=== PATIENT | male | born 1980 | race Hispanic/Latino ===

== ENCOUNTER 2017-08-20 23:06 | Emergency (ER) | payer BC ==
[2017-08-20] MEDS ORDERED: KETOROLAC TROMETHAMINE 30MG/ML ONE (23:22)
[2017-08-20 23:42] LABS: BASOPHILS % (AUTO) 4.1 % (0.0-5.0); EOSINOPHILS % (AUTO) 2.4 % (0.0-8.0); HEMATOCRIT 47.2 % (42-54); LYMPHOCYTES % (AUTO) 11.6 % (21.0-51.0); MEAN CORPUSCULAR HEMOGLOBIN 31.4 pg (27.0-33.0); MEAN CORPUSCULAR HGB CONC 34.3 g/dL (32.0-36.0); MEAN CORPUSCULAR VOLUME 91.6 fL (79-99); MONOCYTES % (AUTO) 6.8 % (3.0-13.0); NEUTROPHILS % (AUTO) 75.1 % (40.0-77.0); NUCLEATED RED BLOOD CELLS 0.1 % (0.0-0.19); PLATELET COUNT (AUTO) 277 K/uL (130-400); RED BLOOD CELL COUNT(AUTO) 5.15 MIL/uL (4.50-6.20); RED CELL DISTRIBUTION WIDTH 14.3 % (11.0-15.5); WHITE BLOOD COUNT (AUTO) 9.5 K/uL (4.8-10.8)
[2017-08-20 23:56] LABS: CREATININE 0.9 mg/dL (0.5-1.5); POTASSIUM 3.5 mmol/L (3.5-5.1)
[2017-08-21] MEDS ORDERED: TAMSULOSIN HCL 0.4 MG CAP.ER.24H ONE (00:17)
== END 2017-08-21 00:46 | disposition home or self-care (01) ==
LOC: EDH 23:06
DX: N20.1 Calculus of ureter (principal); Z98.890 Other specified postprocedural states
CPT/HCPCS: 36415; 74176; 80048; 85025; 96374; 99285; J1885

== ENCOUNTER 2017-08-25 12:16 | Emergency (ER) | payer BC ==
[2017-08-25] MEDS ORDERED: SODIUM CHLORIDE 0.9% 1000ML 1,000 ML IV ONE (12:42)
[2017-08-25] MEDS ORDERED: KETOROLAC TROMETHAMINE 30MG/ML ONE (12:42)
[2017-08-25] MEDS ORDERED: ONDANSETRON HCL MDV 20ML 2 MG/ML VIAL ONE (12:42)
[2017-08-25 12:53] LABS: BASOPHILS % (AUTO) 0.2 % (0.0-5.0); EOSINOPHILS % (AUTO) 0.3 % (0.0-8.0); HEMATOCRIT 44.9 % (42-54); LYMPHOCYTES % (AUTO) 6.1 % (21.0-51.0); MEAN CORPUSCULAR HEMOGLOBIN 31.2 pg (27.0-33.0); MEAN CORPUSCULAR VOLUME 91.8 fL (79-99); NEUTROPHILS % (AUTO) 85.4 % (40.0-77.0); PLATELET COUNT (AUTO) 252 K/uL (130-400); RED BLOOD CELL COUNT(AUTO) 4.89 MIL/uL (4.50-6.20)
[2017-08-25 13:09] LABS: POTASSIUM 3.4 mmol/L (3.5-5.1)
[2017-08-25 13:15] LABS: ALBUMIN 3.7 g/dL (3.5-5.0); BILIRUBIN,TOTAL 0.6 mg/dL (0.2-1.0); TOTAL PROTEIN, SERUM 7.3 g/dL (6.0-8.3)
[2017-08-25 14:15] LABS: APPEARANCE,URINE CLEAR (CLEAR); BILIRUBIN,URINE SMALL (NEGATIVE); COLOR,URINE YELLOW (YELLOW); GLUCOSE, URINE (UA) NEGATIVE (NEGATIVE); KETONES,URINE 15 mg/dL (NEGATIVE); LEUKOCYTE ESTERASE ,URINE NEGATIVE (NEGATIVE); NITRATE,URINE NEGATIVE (NEGATIVE); OCCULT BLOOD,URINE LARGE (NEGATIVE); PH,URINE 5.5 (5.0-8.0); PROTEIN,URINE TRACE (NEGATIVE)
[2017-08-25] MEDS ORDERED: MORPHINE SULFATE 4 MG/1ML SYG ONE (14:35)
[2017-08-25 14:47] LABS: BACTERIA,URINE None Seen /HPF (None Seen); MUCUS,URINE Many LPF (None Seen); RBC,URINE 26-50 /HPF (0-1); SQUAMOUS EPITHELIAL CELL,UR 0-2 /HPF (0-2); WBC,URINE None Seen /HPF (0-1)
== END 2017-08-25 15:06 | disposition home or self-care (01) ==
LOC: EDH 12:16
DX: N20.0 Calculus of kidney (principal)
CPT/HCPCS: 36415; 80053; 81001; 83690; 85025; 96374; 96375; 99284; J1885; J2270; J7030

== ENCOUNTER 2019-10-24 16:11 | Emergency (ER) | payer BC, OTHER ==
[2019-10-24 18:27] LABS: APPEARANCE,URINE Clear (CLEAR); BILIRUBIN,URINE Negative (NEGATIVE); COLOR,URINE Dark Yellow (YELLOW); GLUCOSE, URINE (UA) Negative (NEGATIVE); KETONES,URINE Trace mg/dL (NEGATIVE); LEUKOCYTE ESTERASE ,URINE Negative (NEGATIVE); NITRATE,URINE Negative (NEGATIVE); OCCULT BLOOD,URINE Negative (NEGATIVE); PROTEIN,URINE POS 1+ mg/dL (NEGATIVE)
[2019-10-24 18:54] LABS: BACTERIA,URINE Few /HPF (None Seen); MUCUS,URINE Many LPF (None Seen); SQUAMOUS EPITHELIAL CELL,UR Few /HPF (0-2)
== END 2019-10-24 19:01 | disposition home or self-care (01) ==
LOC: EDH 16:11
DX: R50.9 Fever, unspecified (principal); R11.0 Nausea; M79.10 Myalgia, unspecified site; Z20.828 Contact with and (suspected) exposure to other viral communicable diseases
CPT/HCPCS: 36415; 71045; 81001; 99284; U0003

== ENCOUNTER 2020-11-04 19:53 | Emergency (ER) | payer OTHER ==
[~2020-11-04] VITALS: Ht 175.3 cm; Wt 111.1 kg
[2020-11-04] MEDS ORDERED: MAG/ALUM/SIMETH 30 ML UDCUP PO ONE (21:00)
[2020-11-04] MEDS ORDERED: LIDOCAINE HCL 2% VISCOUS 15 ML UDCUP PO ONE (21:00)
[2020-11-04] MEDS ORDERED: LIDOCAINE HCL 2% VISCOUS 15 ML UDCUP ONE (21:12)
[2020-11-04] MEDS ORDERED: MAG/ALUM/SIMETH 30 ML UDCUP ONE (21:12)
[2020-11-04] MEDS ORDERED: FAMOTIDINE 20MG TAB ONE (21:13)
[2020-11-04 22:04] LABS: BASOPHILS % (AUTO) 0.6 % (0.0-5.0); EOSINOPHILS % (AUTO) 1.9 % (0.0-8.0); HEMATOCRIT 43.7 % (42-54); LYMPHOCYTES % (AUTO) 19.5 % (21.0-51.0); MEAN CORPUSCULAR HEMOGLOBIN 24.4 pg (27.0-33.0); MEAN CORPUSCULAR HGB CONC 30.2 g/dL (32.0-36.0); MEAN CORPUSCULAR VOLUME 80.9 fL (79-99); MONOCYTES % (AUTO) 8.7 % (3.0-13.0); PLATELET COUNT (AUTO) 301 K/uL (130-400); RED CELL DISTRIBUTION WIDTH 15.9 % (11.0-15.5); WHITE BLOOD COUNT (AUTO) 10.8 K/uL (4.8-10.8)
[2020-11-04 22:17] LABS: CREATININE 1.1 mg/dL (0.5-1.5); POTASSIUM 3.7 mmol/L (3.5-5.1)
[2020-11-04 22:21] LABS: ALBUMIN 4.2 g/dL (3.5-5.0); BILIRUBIN,TOTAL 0.4 mg/dL (0.2-1.0); TOTAL PROTEIN, SERUM 7.6 g/dL (6.0-8.3)
[2020-11-04] MEDS ORDERED: FAMO-136 PO (22:44)
[2020-11-04 23:10] VITALS: BP 126/78
== END 2020-11-04 23:07 | disposition home or self-care (01) ==
LOC: EDH 19:53
DX: K21.9 Gastro-esophageal reflux disease without esophagitis (principal); R07.89 Other chest pain; Z98.84 Bariatric surgery status; Z79.899 Other long term (current) drug therapy
CPT/HCPCS: 36415; 71045; 80053; 83690; 84484; 85025; 93005

== ENCOUNTER 2022-10-04 15:05 | Emergency (ER) | payer OTHER ==
[~2022-10-04] VITALS: Ht 177.8 cm; Wt 108.9 kg
[~2022-10-04 15:05] MED LIST: FAMO-136 PO
[2022-10-04 16:20] LABS: BASOPHILS % (AUTO) 0.5 % (0.0-5.0); HEMATOCRIT 44.9 % (42-54); LYMPHOCYTES % (AUTO) 16.2 % (21.0-51.0); MEAN CORPUSCULAR HEMOGLOBIN 24.5 pg (27.0-33.0); MEAN CORPUSCULAR HGB CONC 30.5 g/dL (32.0-36.0); MEAN CORPUSCULAR VOLUME 80.2 fL (79-99); MONOCYTES % (AUTO) 10.7 % (3.0-13.0); NEUTROPHILS % (AUTO) 71.3 % (40.0-77.0); PLATELET COUNT (AUTO) 341 K/uL (130-400); RED CELL DISTRIBUTION WIDTH 15.9 % (11.0-15.5); WHITE BLOOD COUNT (AUTO) 9.3 K/uL (4.8-10.8)
[2022-10-04 17:03] LABS: APPEARANCE,URINE CLEAR (CLEAR); BILIRUBIN,URINE NEGATIVE (NEGATIVE); COLOR,URINE LIGHT-YELLOW (YELLOW); GLUCOSE, URINE (UA) TRACE mg/dL (NEGATIVE); KETONES,URINE NEGATIVE (NEGATIVE); LEUKOCYTE ESTERASE ,URINE NEGATIVE Leu/uL (NEGATIVE); NITRATE,URINE NEGATIVE (NEGATIVE); OCCULT BLOOD,URINE NEGATIVE (NEGATIVE); PROTEIN,URINE 10 mg/dL (NEGATIVE); UROBILINOGEN,URINE 0.2 mg/dL (0.2-1.0)
[2022-10-04 17:05] LABS: CREATININE 0.9 mg/dL (0.5-1.5); POTASSIUM 4.1 mmol/L (3.5-5.1)
[2022-10-04 17:05] LABS: BACTERIA,URINE RARE /HPF (None Seen); MUCUS,URINE MOD LPF (None Seen); RBC,URINE 0-1 /HPF (0-1); SQUAMOUS EPITHELIAL CELL,UR RARE /HPF (0-2); WBC,URINE 0-1 /HPF (0-1)
[2022-10-04 17:10] LABS: TOTAL PROTEIN, SERUM 7.7 g/dL (6.0-8.3)
[2022-10-04] MEDS ORDERED: METH-811 PO (18:27)
[2022-10-04] MEDS ORDERED: PRED20TA3 PO (18:27)
[2022-10-04] MEDS ORDERED: KETOROLAC 60 MG VIAL (30MG/ML) IM ONE ×2 (18:30→18:43)
[2022-10-04] MEDS ORDERED: CYCLOBENZAPRINE HCL 10 MG TABLET PO ONE (18:30)
[2022-10-04] MEDS ORDERED: PREDNISONE 20 MG TABLET PO ONE (18:30)
[2022-10-04] MEDS ORDERED: CYCLOBENZAPRINE HCL 10 MG TABLET ONE (18:43)
[2022-10-04] MEDS ORDERED: PREDNISONE 20 MG TABLET ONE (18:43)
[2022-10-04 18:48] VITALS: BP 126/78
== END 2022-10-04 18:48 | disposition home or self-care (01) ==
LOC: EDH 15:05
DX: S39.012A Strain of muscle, fascia and tendon of lower back, initial encounter (principal); X58.XXXA Exposure to other specified factors, initial encounter; Y93.89 Activity, other specified; Y92.89 Other specified places as the place of occurrence of the external cause; Y99.8 Other external cause status
CPT/HCPCS: 99285; 74176; 80053; 85025; 81001; 36415; 96372; J1885

== ENCOUNTER 2023-11-14 07:41 | Emergency (ER) | payer BC, OTHER ==
[~2023-11-14] VITALS: Ht 180.3 cm; Wt 106.6 kg
[~2023-11-14 07:41] MED LIST changes: +METH-811 PO; +PRED20TA3 PO
[2023-11-14 08:27] LABS: APPEARANCE,URINE CLEAR (CLEAR); BILIRUBIN,URINE NEGATIVE (NEGATIVE); COLOR,URINE YELLOW (YELLOW); GLUCOSE, URINE (UA) NEGATIVE (NEGATIVE); KETONES,URINE NEGATIVE (NEGATIVE); LEUKOCYTE ESTERASE ,URINE NEGATIVE Leu/uL (NEGATIVE); NITRATE,URINE NEGATIVE (NEGATIVE); OCCULT BLOOD,URINE NEGATIVE (NEGATIVE); PROTEIN,URINE 10 mg/dL (NEGATIVE); UROBILINOGEN,URINE 0.2 mg/dL (0.2-1.0)
[2023-11-14 08:33] LABS: ADD UA MICROSCOPIC YES
[2023-11-14 08:35] LABS: MUCUS,URINE MOD LPF (None Seen); RBC,URINE 0-1 /HPF (0-1)
[2023-11-14 09:26] LABS: HEMATOCRIT 41.9 % (42-54); MEAN CORPUSCULAR HEMOGLOBIN 23.2 pg (27.0-33.0); MEAN CORPUSCULAR HGB CONC 30.1 g/dL (32.0-36.0); PLATELET COUNT (AUTO) 317 K/uL (130-400); RED BLOOD CELL COUNT(AUTO) 5.44 MIL/uL (4.50-6.20); WHITE BLOOD COUNT (AUTO) 8.5 K/uL (4.8-10.8)
[2023-11-14 09:36] LABS: CREATININE 0.9 mg/dL (0.5-1.3)
[2023-11-14] MEDS ORDERED: IOHEXOL 350 MG/ML 100ML INFUS..BTL IV ONE (10:09)
[2023-11-14] MEDS ORDERED: IBUPROFEN 800 MG TAB PO ONE (10:30)
[2023-11-14] MEDS ORDERED: AMOX1TAB16 PO (10:37)
[2023-11-14] MEDS ORDERED: IBUP-2077 PO (10:37)
[2023-11-14 10:44] VITALS: BP 131/77; PULSE 85; RESP 20; O2SAT 98
[2023-11-14] MEDS ORDERED: AMOX/CLAV 875/125MG TAB PO ONE (11:00)
[2023-11-14 11:25] LABS: BAND NEUTROPHILS % (MANUAL) 3 % (0-2); BASOPHILS % (MANUAL) 1 % (0-2); LYMPHOCYTES % (MANUAL) 19 % (22-44); MAN.DIFF COMMENT-IMPRESSION MANUAL DIFFERENTIAL; MONOCYTES % (MANUAL) 9 % (2-9); PLATELET MORPHOLOGY COMMENT ADEQUATE; SEGMENTED NEUTROPHILS % 68 % (40-70); TOTAL CELLS COUNTED 100
== END 2023-11-14 10:59 | disposition home or self-care (01) ==
LOC: EDH 07:41
DX: K57.32 Diverticulitis of large intestine without perforation or abscess without bleeding (principal); Z79.899 Other long term (current) drug therapy; Z98.84 Bariatric surgery status; Z98.890 Other specified postprocedural states
CPT/HCPCS: 99284; 74177; 80048; 85025; 81001; 36415; Q9967

== ENCOUNTER 2024-03-08 15:05 | Emergency (ER) | payer BC ==
[~2024-03-08] VITALS: Ht 177.8 cm; Wt 106.6 kg
[~2024-03-08 15:05] MED LIST changes: +AMOX1TAB16 PO; +IBUP-2077 PO
[2024-03-08 15:06] VITALS: TEMP 98.8
[2024-03-08 15:28] LABS: BASOPHILS # (AUTO) 0.07 K/uL (0.00-0.20); BASOPHILS % (AUTO) 0.9 % (0.0-5.0); EOSINOPHILS # (AUTO) 0.14 K/uL (0.00-0.70); EOSINOPHILS % (AUTO) 1.8 % (0.0-8.0); HEMATOCRIT 45.1 % (42-54); IMMATURE GRANULOCYTE ABSOLUTE 0.02 K/uL (0-1); LYMPHOCYTES % (AUTO) 25.5 % (21.0-51.0); MEAN CORPUSCULAR HEMOGLOBIN 23.8 pg (27.0-33.0); MEAN CORPUSCULAR HGB CONC 30.2 g/dL (32.0-36.0); MONOCYTES # (AUTO) 0.9 K/uL (0.1-1.0); MONOCYTES % (AUTO) 11.1 % (3.0-13.0); NEUTROPHILS # (AUTO) 4.6 K/uL (1.8-7.7); NEUTROPHILS % (AUTO) 60.4 % (40.0-77.0); PLATELET COUNT (AUTO) 361 K/uL (130-400); RED BLOOD CELL COUNT(AUTO) 5.71 MIL/uL (4.50-6.20); RED CELL DISTRIBUTION WIDTH 16.2 % (11.0-15.5); WHITE BLOOD COUNT (AUTO) 7.7 K/uL (4.8-10.8)
[2024-03-08 15:32] LABS: APPEARANCE,URINE CLEAR (CLEAR); BILIRUBIN,URINE NEGATIVE (NEGATIVE); COLOR,URINE LIGHT-YELLOW (YELLOW); GLUCOSE, URINE (UA) NEGATIVE (NEGATIVE); KETONES,URINE NEGATIVE (NEGATIVE); LEUKOCYTE ESTERASE ,URINE NEGATIVE Leu/uL (NEGATIVE); NITRATE,URINE NEGATIVE (NEGATIVE); OCCULT BLOOD,URINE NEGATIVE (NEGATIVE); PH,URINE 5.5 (5.0-8.0); PROTEIN,URINE NEGATIVE (NEGATIVE); UROBILINOGEN,URINE 0.2 mg/dL (0.2-1.0)
[2024-03-08 15:33] LABS: ADD UA MICROSCOPIC NO
[2024-03-08 15:53] LABS: POTASSIUM 3.7 mmol/L (3.5-5.1)
[2024-03-08] MEDS ORDERED: IOHEXOL 350 MG/ML 100ML INFUS..BTL IV ONE (16:09)
--- NOTE | 2024-03-08 16:30 | HMCIMG ---
CT ABDOMEN/PELVIS W/CONTRAST REASON: LLQ abd pain r/o complicated diverticulitis hx of diverticulitis COMPARISON: None. TECHNIQUE: Images are obtained from lung bases to the symphysis pubis following IV contrast, 100 cc Omnipaque 350. FINDINGS: Lung bases are clear. There are no focal liver lesions. There are normal-appearing kidneys.. Spleen and pancreas appear unremarkable. The gallbladder appears normal as well. There are some mildly prominent fluid-filled loops of small bowel, nonspecific, often a reflection of gastroenteritis or ileus. There is mild sigmoid diverticulosis without evidence of diverticulitis. Colon otherwise appears unremarkable. This includes normal appearance of the appendix.. This includes normal appearance of the appendix There is no evidence of free fluid or intraperitoneal air. There are no focal fluid collections. Aorta and retroperitoneum appear normal as do pelvic soft tissue structures. The anterior abdominal wall is intact. Osseous structures appear unremarkable. IMPRESSION: 1. Mildly prominent fluid-filled loops of small bowel without transition zone, findings nonspecific but most consistent with gastroenteritis or mild ileus. 2. Mild sigmoid diverticulosis without evidence of diverticulitis. 3. Otherwise unremarkable post contrast CT abdomen and pelvis. CT was performed with one or more following dose reduction techniques: automated exposure control, adjustment of the mA and kv according to patient's size, or use of a iterative reconstruction technique.
[2024-03-08] MEDS ORDERED: ONDA-243 PO (17:39)
[2024-03-08] MEDS ORDERED: AMOX1TAB16 PO (17:39)
[2024-03-08] MEDS ORDERED: FAMO-136 PO (17:39)
--- NOTE | 2024-03-08 17:39 | ERN ---
General Chief Complaint: Abdominal Pain Stated Complaint: ABDOMINAL PAIN Time Seen by MD: 15:07 Time Seen by Midlevel: 15:07 Source: patient History of Present Illness Initial Comments Patient is a 43-year-old male with a past medical history of diverticulitis and a gastric bypass presenting to the emergency department of periumbilical abdominal pain that started this morning. He specifically denies any constipation, nausea, vomiting, diarrhea, fever, or any other symptoms at this time. Patient does have a history of complicated diverticulitis and was concerned that he may be having a flare-up. Allergies: Coded Allergies: No Known Allergies (Unverified Allergy, Unknown, 10/04/22) Home Meds Active Scripts Amoxicillin/Potassium Clav (Amox Tr-K Clv 875-125 mg Tab) 875 Mg-125 Mg Tablet, 1 EACH PO BID for 5 Days, #10 TAB 0 Refills Prov:ZITA JACK 03/08/24 Ondansetron (Ondansetron Odt) 4 Mg Tab.rapdis, 4 MG PO BID for 7 Days, #14 TAB Prov:ZITA JACK 03/08/24 Famotidine (Pepcid) 20 Mg Tablet, 1 TAB PO BID for 7 Days, #14 TAB 0 Refills Prov:ZITA JACK 03/08/24 Ibuprofen (Ibuprofen 800 mg Tab) 800 Mg Tab, 800 MG PO Q8H PRN for fever or pain, #30 TAB 0 Refills Prov:JULISSA RIVERA NP 11/14/23 Amoxicillin/Potassium Clav (Amox Tr-K Clv 875-125 mg Tab) 875 Mg-125 Mg Tablet, 1 EACH PO BID for 10 Days, #20 TAB 0 Refills Prov:JULISSA RIVERA NP 11/14/23 Prednisone (Prednisone) 20 Mg Tablet, 2 TAB PO DAILY for 5 Days, #10 TAB 0 Refills Prov:CHEKO RAHMAN [facility] 10/04/22 Methocarbamol (Methocarbamol) 500 Mg Tablet, 500 MG PO BID PRN for BACK PAIN, #30 TAB Prov:CHKEO RAHMAN [facility] 10/04/22 Famotidine (Pepcid) 20 Mg Tablet, 20 MG PO BID, #60 TAB Prov:SCAR DEAL 11/04/20 Past Medical History Past Medical History: No Pertinent History Past Surgical History: Bariatric Surgery Surgical History Other: GASTRIC BYPASS Social History Social History: Negative ROS Dictation CONSTITUTIONAL: Negative except for HPI HEAD/FACE: Negative except for HPI EENT: Negative except for HPI RESPIRATORY: Negative except for HPI GASTROINTESTINAL/ABDOMINAL: Negative except for HPI GENITOURINARY: Negative except for HPI MUSCULOSKELETAL: Negative except for HPI INTEGUMENTARY: Negative except for HPI NEUROLOGICAL/PSYCH: Negative except for HPI HEMATOLOGIC/LYMPHATIC: Negative except for HPI All Systems Negative, Except as noted above. 13 point review of systems assessed and all negative except for above. Physical Exam Physical Exam Dictation Vital Signs reviewed General Appearance: Alert, oriented x 3, no acute distress, well developed, nourished. Head and Face: non-traumatic. Eyes: PERRL, pink conjunctivas, eyelid no trauma, anterior chamber with arcus senilis. Ears: Pinnas intact and no signs of trauma or erythema ear canals clear and no discharge TM no erythema Nose: No discharge, no bleeding. Oropharynx: Mouth normal, tongue pink, pharynx clear,no erythema, tonsils no exudates, no abscesses noted, mucous membrane moist Neck: Supple, non-tender, no thyromegaly, no masses, no JVD, no bruits Breast:Deferred Chest:No tenderness, no crepitus, no paradoxical movement, no retractions Lungs:Clear, well-ventilated, symmetric, no rales, no wheezing, no rhonchi, no stridor, good breath sounds bilaterally Heart: Regular rate, regular rhythm, no murmur, no gallops Vascular: no peripheral edema, Abdomen: Soft, positive bowel sounds, nondistended, no guarding, Diffuse abdominal tenderness, no rebound, no masses no hepatomegaly, no splenomegaly, no Morel's sign, no hernias. Rectal: Deferred Genital: Deferred Neurological: Normal speech, motor function intact, sensory function intact Musculoskeletal: Neck nontender, full range of motion, back nontender, full range of motion, Extremities: nontender, full range of motion Skin: Color pink, dry, no turgor, no rash, no lacerations, no abrasions, no contusions. Lymphatic: Deferred Results Laboratory and Microbiology Lab and Micro Result Laboratory Tests Test 03/08/24 15:18 White Blood Count 7.7 K/uL (4.8-10.8) Red Blood Count 5.71 MIL/uL (4.50-6.20) Hemoglobin 13.6 g/dL (14.0-18.0) L Hematocrit 45.1 % (42-54) Mean Corpuscular Volume 79.0 fL (79-99) Mean Corpuscular Hemoglobin 23.8 pg (27.0-33.0) L Mean Corpuscular Hemoglobin Concent 30.2 g/dL (32.0-36.0) L Red Cell Distribution Width 16.2 % (11.0-15.5) H Platelet Count 361 K/uL (130-400) Mean Platelet Volume 10.5 fL (7.5-10.5) Immature Granulocyte % (Auto) 0.3 % (0-1) Neutrophils (%) (Auto) 60.4 % (40.0-77.0) Lymphocytes (%) (Auto) 25.5 % (21.0-51.0) Monocytes (%) (Auto) 11.1 % (3.0-13.0) Eosinophils (%) (Auto) 1.8 % (0.0-8.0) Basophils (%) (Auto) 0.9 % (0.0-5.0) Neutrophils # (Auto) 4.6 K/uL (1.8-7.7) Lymphocytes # (Auto) 2.0 K/uL (1.0-4.8) Monocytes # (Auto) 0.9 K/uL (0.1-1.0) Eosinophils # (Auto) 0.14 K/uL (0.00-0.70) Basophils # (Auto) 0.07 K/uL (0.00-0.20) Absolute Immature Granulocyte (auto 0.02 K/uL (0-1) Nucleated Red Blood Cells 0.0 % (0.0-0.19) Red Blood Cell Morphology See comments Urine Color LIGHT-YELLOW (YELLOW) Urine Appearance CLEAR (CLEAR) Urine pH 5.5 (5.0-8.0) Urine Specific [place] 1.011 (1.001-1.031) Urine Protein NEGATIVE mg/dL (NEGATIVE) Urine Glucose (UA) NEGATIVE mg/dL (NEGATIVE) Urine Ketones NEGATIVE mg/dL (NEGATIVE) Urine Occult Blood NEGATIVE (NEGATIVE) Urine Nitrate NEGATIVE (NEGATIVE) Urine Bilirubin NEGATIVE mg/dL (NEGATIVE) Urine Urobilinogen 0.2 mg/dL (0.2-1.0) Urine Leukocyte Esterase NEGATIVE Jared/uL Sodium Level 135 mmol/L (136-145) L Potassium Level 3.7 mmol/L (3.5-5.1) Chloride Level 99 mmol/L (101-111) L Carbon Dioxide Level 31 mmol/L (21-32) Blood Urea Nitrogen 11 mg/dL (7-18) Creatinine 1.0 mg/dL (0.5-1.3) Glomerular Filtration Rate Calc 96 mL/min (>90) Random Glucose 92 mg/dL (70-105) Lactic Acid Level 2.0 mmol/L (0.8-2.5) Total Calcium 9.4 mg/dL (8.5-10.1) Procalcitonin < 0.05 ng/mL (0.05-0.5) L Labs Reviewed?: Yes MDM MDM: Patient is a 43-year-old male with a past medical history of diverticulitis and a gastric bypass presenting to the emergency department of periumbilical abdominal pain that started this morning. He specifically denies any constipation, nausea, vomiting, diarrhea, fever, or any other symptoms at this time. Patient does have a history of complicated diverticulitis and was concerned that he may be having a flare-up. On physical examination patient is in no acute distress. His initial vital signs are stable he is nontoxic ap pearing. He has moderate periumbilical abdominal tenderness. Given his extensive history of diverticulitis with complications CT scan of the abdomen and pelvis with contrast was obtained which reveals gastroenteritis versus ileus. Labs are stable. There was no leukocytosis. Patient will be discharged home with prescription for Flagyl for outpatient management. He was advised to follow up with the PCP in 2-3 days for repeat evaluation. If he was to develop any new or worsening symptoms he was advised to report to the ER for further evaluation. Differential diagnosis: There are no social concerns with this patient. Prescription drug management Prescriptions will include: Flagyl Medical management and examination interpretation discussions were had by me with other qualified healthcare professionals as indicated for the patient's care. ED Course Orders Procedure Category Date Status Time Cbc With Differential LAB 03/08/24 Complete 15:17 Basic Metabolic Panel LAB 03/08/24 Complete 15:17 Urinalysis Profile LAB 03/08/24 Complete 15:17 Lactic Acid LAB 03/08/24 Complete 15:17 Procalcitonin LAB 03/08/24 Complete 15:17 Ct Abdomen/Pelvis CT 03/08/24 Resulted W/Contrast 15:17 Iohexol (Omnipaque) PHA 03/08/24 Complete 16:09 Current Medications Medications (Trade) Dose Ordered Sig/Sofia Route PRN Reason Start Time Stop Time Status Last Admin Dose Admin Iohexol (Omnipaque) 35,000 mg STK-MED ONCE IV 03/08/24 16:09 03/08/24 16:09 DC Vital Signs Date Time Temp Pulse Resp B/P (MAP) Pulse Ox O2 Delivery O2 Flow Rate FiO2 03/08/24 17:43 69 17 151/86 96 Room Air* 0 03/08/24 16:49 89 17 135/79 99 Room Air* 0 03/08/24 15:53 65 17 143/88 98 Room Air* 0 03/08/24 15:06 98.8 68 20 170/92 97 Room Air [address] [address] IMAGING REPORT Signed PATIENT: BAILEY ARORA MR#: [id number] : 1980 SEX: M AGE: 43 LOCATION: [facility] ORDER 18 STATUS: REG ER REPORT#: [id number] SERVICE 16 REASON: LLQ abd pain r/o complicated diverticulitis hx of diverticulitis ORDERING PHYSICIAN: ZITA JACK PROCEDURE: ABD PEL W - CT ABDOMEN/PELVIS W/CONTRAST CT ABDOMEN/PELVIS W/CONTRAST REASON: LLQ abd pain r/o complicated diverticulitis hx of diverticulitis COMPARISON: None. TECHNIQUE: Images are obtained from lung bases to the symphysis pubis following IV contrast, 100 cc Omnipaque 350. FINDINGS: Lung bases are clear. There are no focal liver lesions. There are normal-appearing kidneys.. Spleen and pancreas appear unremarkable. The gallbladder appears normal as well. There are some mildly prominent fluid-filled loops of small bowel, nonspecific, often a reflection of gastroenteritis or ileus. There is mild sigmoid diverticulosis without evidence of diverticulitis. Colon otherwise appears unremarkable. This includes normal appearance of the appendix.. This includes normal appearance of the appendix There is no evidence of free fluid or intraperitoneal air. There are no focal fluid collections. Aorta and retroperitoneum appear normal as do pelvic soft tissue structures. The anterior abdominal wall is intact. Osseous structures appear unremarkable. IMPRESSION: 1. Mildly prominent fluid-filled loops of small bowel without transition zone, findings nonspecific but most consistent with gastroenteritis or mild ileus. 2. Mild sigmoid diverticulosis without evidence of diverticulitis. 3. Otherwise unremarkable post contrast CT abdomen and pelvis. CT was performed with one or more following dose reduction techniques: automated exposure control, adjustment of the mA and kv according to patient's size, or use of a iterative reconstruction technique. DICTATED BY: DANIELA TORRES MD DATE: 03/08/241624 ELECTRONICALLY SIGNED BY: DANIELA TORRES MD DATE: 03/08/241629 DX & DISP Disposition: Discharge Departure Impression: Primary Impression: Gastroenteritis Condition: Stable Scripts Amoxicillin/Potassium Clav (Amox Tr-K Clv 875-125 mg Tab) 875 Mg-125 Mg Tablet 1 EACH PO BID for 5 Days, #10 TAB 0 Refills Prov: ZITA JACK 03/08/24 Ondansetron (Ondansetron Odt) 4 Mg Tab.rapdis 4 MG PO BID for 7 Days, #14 TAB Prov: ZITA JACK 03/08/24 Famotidine (Pepcid) 20 Mg Tablet 1 TAB PO BID for 7 Days, #14 TAB 0 Refills Prov: ZITA JACK 03/08/24 Referrals: JERRY ONTIVEROS MD (PCP) I have reviewed the case, and I agree with, Diagnosis and Plan I performed the substantive portion of the visit. I have reviewed and personally made and approve the management plan that is documented in the note by myself or the FERDINAND. I acknowledge for responsibility for the patient's management plan. ZITA JACK Mar 08, 2024 17:39
[2024-03-08 17:43] VITALS: BP 151/86; PULSE 69; RESP 17; O2SAT 96
== END 2024-03-08 17:51 | disposition home or self-care (01) ==
LOC: EDH 15:05
DX: K52.9 Noninfective gastroenteritis and colitis, unspecified (principal); K57.30 Diverticulosis of large intestine without perforation or abscess without bleeding; Z79.52 Long term (current) use of systemic steroids; Z98.84 Bariatric surgery status
CPT/HCPCS: 99284; 74177; 80048; 85025; 83605; 81003; 36415; 84145; Q9967

== ENCOUNTER 2025-01-17 17:54 | Emergency (ER) | payer BC ==
[~2025-01-17] VITALS: Ht 177.8 cm; Wt 104.3 kg
[~2025-01-17 17:54] MED LIST changes: +ONDA-243 PO
--- NOTE | 2025-01-17 18:04 | ERN ---
ED Note History of Present Illness Stated Complaint: HEADACHE Chief Complaint: Headache Time Seen by MD: 17:58 Dictation: PATIENT IS A 44-YEAR-OLD MALE WHO DROVE HIMSELF TO THE HOSPITAL FROM HIS HOUSE WITH COMPLAINTS OF NUMBNESS AND TINGLING TO HIS FEET BILATERALLY, STATES HE HAS A LEFT RETRO-ORBITAL HEADACHE AND HIGH BLOOD PRESSURE. HE STATES HE USES HIS 'S BLOOD PRESSURE MACHINE AT HOME AND IT SAID IT WAS HIGH. AND HE GOT CONCERNED AND DROVE TO THE HOSPITAL. FOR THE HEADACHE HE HAS TAKEN A SINGLE TYLENOL THIS MORNING THAT HE SAID HE WOKE UP WITH A HEADACHE. NIH IS 0 ON EXAM. BLOOD PRESSURE IN TRIAGE 140/80 WITH A REGULAR HEART RATE. Allergies: Coded Allergies: No Known Allergies (Unverified Allergy, Unknown, 10/04/22) Home Meds Active Scripts Amoxicillin/Potassium Clav (Amox Tr-K Clv 875-125 mg Tab) 875 Mg-125 Mg Tablet, 1 EACH PO BID for 5 Days, #10 TAB 0 Refills Prov:ZITA JACK [facility] 03/08/24 Ondansetron (Ondansetron Odt) 4 Mg Tab.rapdis, 4 MG PO BID for 7 Days, #14 TAB Prov:ZITA JACK [facility] 03/08/24 Famotidine (Pepcid) 20 Mg Tablet, 1 TAB PO BID for 7 Days, #14 TAB 0 Refills Prov:ZITA JACK [facility] 03/08/24 Ibuprofen (Ibuprofen 800 mg Tab) 800 Mg Tab, 800 MG PO Q8H PRN for fever or pain, #30 TAB 0 Refills Prov:JULISSA RIVERA [employer] 11/14/23 Amoxicillin/Potassium Clav (Amox Tr-K Clv 875-125 mg Tab) 875 Mg-125 Mg Tablet, 1 EACH PO BID for 10 Days, #20 TAB 0 Refills Prov:JULISSA RIVERA [employer] 11/14/23 Prednisone (Prednisone) 20 Mg Tablet, 2 TAB PO DAILY for 5 Days, #10 TAB 0 Refills Prov:CHEKO RAHMAN [employer] 10/04/22 Methocarbamol (Methocarbamol) 500 Mg Tablet, 500 MG PO BID PRN for BACK PAIN, #30 TAB Prov:CHEKO RAHMAN [facility] 10/04/22 Famotidine (Pepcid) 20 Mg Tablet, 20 MG PO BID, #60 TAB Prov:DEAL,SCAR PA 11/04/20 Past Medical History Past Medical History: No Pertinent History, Anemia Surgical History: Bariatric Surgery Surgical History Other: GASTRIC BYPASS Social History: Negative Review of System Dictation CONSTITUTIONAL: NEGATIVE EXCEPT FOR HPI HYPERTENSION HEAD/FACE: NEGATIVE EXCEPT FOR HPI EENT: NEGATIVE EXCEPT FOR HPI RESPIRATORY: NEGATIVE EXCEPT FOR HPI GASTROINTESTINAL/ABDOMINAL: NEGATIVE EXCEPT FOR HPI GENITOURINARY: NEGATIVE EXCEPT FOR HPI MUSCULOSKELETAL: NEGATIVE EXCEPT FOR HPI INTEGUMENTARY: NEGATIVE EXCEPT FOR HPI NEUROLOGICAL/PSYCH: NEGATIVE EXCEPT FOR HPI LEFT RETRO-ORBITAL HEADACHE NUMBNESS AND TINGLING TO BOTH FEET HEMATOLOGIC/LYMPHATIC: NEGATIVE EXCEPT FOR HPI ALL SYSTEMS NEGATIVE, EXCEPT NOTED ABOVE. 13 POINT REVIEW OF SYSTEMS ASSESSED AND ALL NEGATIVE EXCEPT FOR ABOVE. Initial Vital Sign VS Vital Signs Date Time Temp Pulse Resp B/P (MAP) Pulse Ox O2 Delivery O2 Flow Rate FiO2 01/17/25 17:56 98.2 68 20 140/80 97 Room Air Physical Exam Dictation VITAL SIGNS REVIEWED GENERAL APPEARANCE: ALERT, ORIENTED X 3, MILD ACUTE DISTRESS, WELL DEVELOPED, NOURISHED. HEAD AND FACE: NON-TRAUMATIC. EYES: PERRL, PINK CONJUNCTIVAS, EYELID NO TRAUMA, ANTERIOR CHAMBER WITH ARCUS SENILIS. EARS: PINNAS INTACT AND NO SIGNS OF TRAUMA OR ERYTHEMA EAR CANALS CLEAR AND NO DISCHARGE TM NO ERYTHEMA NOSE: NO DISCHARGE, NO BLEEDING. OROPHARYNX: MOUTH NORMAL, TONGUE PINK, PHARYNX CLEAR,NO ERYTHEMA, TONSILS NO EXUDATES, NO ABSCESSES NOTED, MUCOUS MEMBRANE MOIST NECK: SUPPLE, NON-TENDER, NO THYROMEGALY, NO MASSES, NO JVD, NO BRUITS BREAST:DEFERRED CHEST:NO TENDERNESS, NO CREPITUS, NO PARADOXICAL MOVEMENT, NO RETRACTIONS LUNGS:CLEAR, WELL-VENTILATED, SYMMETRIC, NO RALES, NO WHEEZING, NO RHONCHI, NO STRIDOR, GOOD BREATH SOUNDS BILATERALLY HEART: REGULAR RATE, REGULAR RHYTHM, NO MURMUR, NO GALLOPS VASCULAR: NO PERIPHERAL EDEMA, ABDOMEN: SOFT, POSITIVE BOWEL SOUNDS, NONDISTENDED, NO GUARDING, NONTENDER, NO REBOUND, NO MASSES NO HEPATOMEGALY, NO SPLENOMEGALY, NO TENA'S SIGN, NO HERNIAS. RECTAL: DEFERRED GENITAL: DEFERRED NEUROLOGICAL: NORMAL SPEECH, MOTOR FUNCTION INTACT, SENSORY FUNCTION INTACT NIH IS 0 MUSCULOSKELETAL: NECK NONTENDER, FULL RANGE OF MOTION, BACK NONTENDER, FULL RANGE OF MOTION, EXTREMITIES: NONTENDER, FULL RANGE OF MOTION SKIN: COLOR PINK, DRY, NO TURGOR, NO RASH, NO LACERATIONS, NO ABRASIONS, NO CONTUSIONS. LYMPHATIC: DEFERRED Results (Laboratory/Radiology) Laboratory/Radiology Laboratory Tests Test 01/17/25 18:22 White Blood Count 9.0 K/uL (4.8-10.8) Red Blood Count 5.37 MIL/uL (4.50-6.20) Hemoglobin 11.0 g/dL (14.0-18.0) L Hematocrit 38.6 % (42-54) L Mean Corpuscular Volume 71.9 fL (79-99) L Mean Corpuscular Hemoglobin 20.5 pg (27.0-33.0) L Mean Corpuscular Hemoglobin Concent 28.5 g/dL (32.0-36.0) L Red Cell Distribution Width 19.7 % (11.0-15.5) H Platelet Count 396 K/uL (130-400) Mean Platelet Volume 9.3 fL (7.5-10.5) Immature Granulocyte % (Auto) 0.3 % (0-1) Neutrophils (%) (Auto) 63.4 % (40.0-77.0) Lymphocytes (%) (Auto) 24.5 % (21.0-51.0) Monocytes (%) (Auto) 9.0 % (3.0-13.0) Eosinophils (%) (Auto) 2.2 % (0.0-8.0) Basophils (%) (Auto) 0.6 % (0.0-5.0) Neutrophils # (Auto) 5.7 K/uL (1.8-7.7) Lymphocytes # (Auto) 2.2 K/uL (1.0-4.8) Monocytes # (Auto) 0.8 K/uL (0.1-1.0) Eosinophils # (Auto) 0.20 K/uL (0.00-0.70) Basophils # (Auto) 0.05 K/uL (0.00-0.20) Absolute Immature Granulocyte (auto 0.03 K/uL (0-1) Nucleated Red Blood Cells 0.0 % (0.0-0.19) Red Blood Cell Morphology See comments Sodium Level 141 mmol/L (136-145) Potassium Level 3.8 mmol/L (3.5-5.1) Chloride Level 104 mmol/L (101-111) Carbon Dioxide Level 27 mmol/L (21-32) Blood Urea Nitrogen 14 mg/dL (7-18) Creatinine 0.9 mg/dL (0.5-1.3) Glomerular Filtration Rate Calc 109 mL/min (>90) Random Glucose 94 mg/dL (70-105) Total Calcium 8.7 mg/dL (8.5-10.1) Troponin I High Sensitivity 5 ng/L (4-75) Labs Reviewed?: Yes EKG: (+) NSR EKG Comment: 1818/EKG NORMAL SINUS RHYTHM/HEART RATE 71/AXIS NORMAL/NO ECTOPY ED Course ED Course Orders Procedure Category Date Status Time Acetaminophen 500mg PHA 01/17/25 Complete Tab (Tylenol 500mg T 18:30 Cbc With Differential LAB 01/17/25 Complete 18:01 12 Lead Ekg Tracing- EKG 01/17/25 Complete Technical 18:01 Basic Metabolic Panel LAB 01/17/25 Complete 18:01 Troponin I High LAB 01/17/25 Complete Sensitivity 18:01 Current Medications Medications (Trade) Dose Ordered Sig/Sofia Route PRN Reason Start Time Stop Time Status Last Admin Dose Admin Acetaminophen (TYLenol 500MG TAB) 1,000 mg ONCE ONCE PO 01/17/25 18:30 01/17/25 18:31 DC Vital Signs Date Time Temp Pulse Resp B/P (MAP) Pulse Ox O2 Delivery O2 Flow Rate FiO2 01/17/25 17:56 98.2 68 20 140/80 97 Room Air 1940/PATIENT HEMODYNAMICALLY STABLE. PAIN HAS BEEN GETTING TO RESOLVED WITH TYLENOL. PATIENT WILL BE DISCHARGED HOME WITH PARESTHESIAS/CLUSTER HEADACHE/BENIGN HYPERTENSION AND TOLD TO SEE HIS PRIMARY CARE DOCTOR TOMORROW. HEART Score Response (Comments) Value History: Low suspicion (0) 0 EKG: Normal 0 Age: < 45yrs (0) 0 Risk Factors: 1-2 risk factors (+1) 1 Initial Troponin: Normal limit (0) 0 Total 1 Medical Decision Making MDM MDM: DIFFERENTIAL DIAGNOSIS: ACS/AMI/ELECTROLYTE IMBALANCE/DEHYDRATION/ACUTE HEADACHE RATIONALE: TESTS CONSIDERED AND ORDERED SECONDARY TO SHARED DECISION MAKING INCLUDE: EKG/LABS PREVIOUS OUTSIDE RECORDS REVIEWED: OLD ER VISITS. RISK OF COMPLICATION AND/OR MORBIDITY OR MORTALITY OF PATIENT MANAGEMENT: NONE MEDICATIONS-PER MEDICATION RECONCILIATION NEED FOR HOSPITALIZATION: PATIENT DOES NOT MEET CRITERIA FOR HOSPITALIZATION. NONE NEED FOR EMERGENCY MAJOR/MINOR SURGERY: NO THERE ARE NO SOCIAL CONCERNS WITH THIS PATIENT. PRESCRIPTION DRUG MANAGEMENT IBUPROFEN PRESCRIPTIONS WILL INCLUDE SYMPTOMATIC CARE PATIENT'S PRIOR EXTERNAL MEDICAL RECORDS FROM OTHER ER VISITS WERE REVIEWED BY ME INDICATED. PRIOR TESTING AND RESULTS FROM PREVIOUS VISITS WERE REVIEWED. PRIOR TESTS WERE TAKEN INTO ACCOUNT WITH MEDICAL DECISION MAKING AND RESOURCE UTILIZATION, INDEPENDENT HISTORIAN/HISTORIANS WERE USED TO OBTAIN COMPLETE MEDICAL HISTORY. I INDEPENDENTLY INTERPRETED THE TEST THAT WERE PERFORMED, RESULTS WERE REVIEWED BY ME AND CONSIDERED FINDINGS ON RADIOLOGY IF ORDERED. MEDICAL MANAGEMENT AND EXAMINATION INTERPRETATION DISCUSSIONS WERE HAD BY ME WITH OTHER QUALIFIED HEALTHCARE PROFESSIONALS INDICATED FOR THE PATIENT'S CARE. DX & DISP Disposition: Discharge Departure Impression: Primary Impression: Tension headache Additional Impressions: Benign hypertension, Paresthesia of both feet Condition: Stable Scripts Ibuprofen (Ibuprofen) 800 Mg Tablet 800 MG PO Q6H PRN for PAIN, #30 TAB Prov: JULISSA RIVERA 01/17/25 Additional Instructions: FOLLOW-UP WITH PRIMARY CARE PROVIDER IN 1 TO 2 DAYS. TAKE MEDICATIONS DIRECTED HERE IN THE EMERGENCY ROOM. OKAY TO CONTINUE HOME MEDICATIONS UNLESS OTHERWISE DISCUSSED DURING YOUR VISIT IN THE EMERGENCY ROOM TODAY. RETURN TO YOUR NEAREST EMERGENCY ROOM IF SYMPTOMS WORSEN OR IF THERE IS NO IMPROVEMENT. CALL 911 IF YOU NEED IMMEDIATE ASSISTANCE. TAKE TYLENOL OR MOTRIN ABNP-YPE-GAORFMJ NEEDED AND IF NO CONTRAINDICATIONS ARE PRESENT. INCREASE ORAL HYDRATION. A WOUND CULTURE OR URINE CULTURE WAS ORDERED HERE IN THE EMERGENCY ROOM DEPARTMENT PLEASE FOLLOW-UP WITH PRIMARY CARE PROVIDER AND ADVISE THEM TO GET REPEAT PORTS FROM OUR FACILITY. IF YOU HAD ANY BESS WRAP/SPLINTS THAT WERE APPLIED HERE, PLEASE DO NOT REMOVE THEM UNTIL YOU SEE YOUR PRIMARY CARE OR SPECIALTY. TAKE IBUPROFEN NEEDED FOR PAIN. FOLLOW UP WITH THE YOUR PRIMARY CARE DOCTOR FOR RE-EVALUATION OF YOUR HEADACHE AND BLOOD PRESSURE. ALSO TELL HIM ABOUT THE TINGLING TO YOUR FEET. Referrals: JERRY ONTIVEROS MD (PCP) Time of Disposition: 19:43 I have reviewed the case, and I agree with, Diagnosis and Plan JULISSA RIVERA Jan 17, 2025 18:04
--- NOTE | 2025-01-17 18:16 | EKG ---
[facility] Test Date: 2025-01-17 Test Time: 18:09:22 Pat Name: BAILEY ARORA Department: ED Room: Gender: Assayer: [facility] : 1980 Requested By: JULISSA RIVERA Order Number: [id number] Reading MD: Adan Pak Measurements Intervals [place] Rate: 71 P: 36 [place]: 154 QRS: 7 QRSD: 80 T: 43 QT: 368 QTc: 400 Interpretive Statements Sinus rhythm Compared to ECG 11/04/2020 22:32:36 No significant changes Electronically Signed On 01-19-2025 16:06:37 CDT by Adan Pak Please click the below link to view image of tracing.
[2025-01-17 18:36] LABS: IMMATURE GRANULOCYTE ABSOLUTE 0.03 K/uL (0-1); NUCLEATED RED BLOOD CELLS 0.0 % (0.0-0.19); PLATELET COUNT (AUTO) 396 K/uL (130-400); RED BLOOD CELL COUNT(AUTO) 5.37 MIL/uL (4.50-6.20); RED CELL DISTRIBUTION WIDTH 19.7 % (11.0-15.5); WHITE BLOOD COUNT (AUTO) 9.0 K/uL (4.8-10.8)
[2025-01-17 18:54] LABS: CREATININE 0.9 mg/dL (0.5-1.3); GLOMERULAR FILTR. RATE CALC 109.0 mL/min (>90); GLUCOSE,RANDOM 94.0 mg/dL (70-105); SODIUM SERUM 141.0 mmol/L (136-145); UREA NITROGEN, BLOOD 14.0 mg/dL (7-18)
[2025-01-17] MEDS ORDERED: IBUP-2071 PO (19:44)
[2025-01-17 20:30] VITALS: BP 126/85; PULSE 66; RESP 16; TEMP 98.4; O2SAT 100
== END 2025-01-17 20:31 | disposition home or self-care (01) ==
LOC: EDH 17:54
DX: G44.209 Tension-type headache, unspecified, not intractable (principal); I10 Essential (primary) hypertension; R20.2 Paresthesia of skin; Z79.52 Long term (current) use of systemic steroids; Z98.84 Bariatric surgery status; R20.0 Anesthesia of skin
CPT/HCPCS: 36415; 80048; 84484; 85025; 93005; 99284